=== PATIENT | female | born 2000 | race Caucasian/White ===

== ENCOUNTER 2021-05-16 14:25 | Emergency (ER) | payer OTHER, BC ==
[2021-05-16 16:08] LABS: Pregnancy Test - Urine (BHCG) Negative (Negative); Pregu Control Background? CLEAR/WHITE (CLR/WHITE); Pregu Control Bar Appear? YES (CONTROL BAR); Specific Gravity 1.015 (1.002-1.036)
== END 2021-05-16 17:21 | disposition home or self-care (01) ==
LOC: CSHERS 14:25
DX: S00.83XA Contusion of other part of head, initial encounter (principal); S30.810A Abrasion of lower back and pelvis, initial encounter; V23.4XXA Motorcycle driver injured in collision with car, pick-up truck or van in traffic accident, initial encounter
CPT/HCPCS: 70450; 70486; 71045; 72170; 81025